=== PATIENT | female | born 1995 ===

== ENCOUNTER 2017-03-26 01:42 | Emergency (ER) | payer SELFPAY ==
[2017-03-26 02:43] VITALS: BMI 26.2
[2017-03-26 03:15] LABS: BASO % 0.2 % (0.0-2.0); EOS % 0.3 % (0.0-4.0); HEMATOCRIT 32.4 % (34.0-47.0); LYMPH # 2.1 K/uL (1.0-4.3); LYMPH % 18.4 % (20.0-40.0); MEAN CELL VOLUME 82.5 fl (81.0-99.0); MEAN CORPUSCULAR HEMOGLOBIN 27.4 pg (27.0-31.0); MEAN CORPUSCULAR HGB CONC 33.2 g/dL (33.0-37.0); MEAN PLATELET VOLUME 9.7 fl (7.2-11.7); MONO % 8.9 % (0.0-10.0); NEUT # 8.3 K/uL (1.8-7.0); NEUT % 72.2 % (50.0-75.0); NRBC % 0.1 % (0.0-0.0); RED CELL DISTRIBUTION WIDTH 13.6 % (11.5-14.5); WHITE BLOOD COUNT 11.5 K/uL (4.8-10.8)
[2017-03-26 03:31] LABS: BLOOD UREA NITROGEN 4 mg/dl (7-17); GLUCOSE,RANDOM 89 mg/dL (65-105)
[2017-03-26 03:32] LABS: CALCIUM 9.3 mg/dL (8.4-10.2); CARBON DIOXIDE 26 mmol/L (22-30); CHLORIDE 106 mmol/L (98-107); GFR AFRICAN-AMERICAN > 60; POTASSIUM 4.4 MMOL/L (3.6-5.0); SODIUM 139 mmol/l (132-148); TOTAL PROTEIN 7.4 G/DL (6.3-8.2)
[2017-03-26 03:33] LABS: ALB/GLOB RATIO 1.1 (1.0-2.1); ALKALINE PHOSPHATASE 131 U/L (38-126); ALT/SGPT 45 U/L (9-52); AST/SGOT 27 U/L (14-36); BILIRUBIN,TOTAL 0.3 mg/dl (0.2-1.3)
[2017-03-26 12:40] VITALS: BP 104/43; PULSE 80; RESP 16; TEMP 98.2
== END 2017-03-26 08:10 | disposition home or self-care (01) ==
LOC: H.EROB2 01:42
DX: O47.03 False labor before 37 completed weeks of gestation, third trimester (principal); Z3A.28 28 weeks gestation of pregnancy

== ENCOUNTER 2017-06-15 10:10 | Inpatient (IN) | payer MEDICAID, SELFPAY ==
[2017-06-15 11:18] VITALS: BMI 27.9
--- NOTE | 2017-06-15 13:06 | US ---
Ultrasound biophysical profile Indication: Decreased movement Technique: Grayscale, color flow, and M-mode sonographic images of the single live intrauterine were obtained. Comparison: None available. Findings: There is a single live intrauterine gestation. The fetus is in cephalic position. The placenta is anterior. There is a normal amount of amniotic fluid. The MARGY measures 4.0 cm. M-mode imaging demonstrates a heart rate to be 126.1 beats per min. movements 2/2 breathing 2/2 tone 2/2 Amniotic fluid 0/2 Total score impression: 6/8 Impression: Oligohydramnios. Biophysical profile of 6 out of 8. Single live intrauterine in cephalic position with a heart rate of 126.1 beats per min.
[2017-06-15 13:53] LABS: BASO % 0.5 % (0.0-2.0); EOS % 0.2 % (0.0-4.0); HEMATOCRIT 40.1 % (34.0-47.0); LYMPH # 1.4 K/uL (1.0-4.3); LYMPH % 26.4 % (20.0-40.0); MEAN CELL VOLUME 84.6 fl (81.0-99.0); MEAN CORPUSCULAR HGB CONC 33.2 g/dL (33.0-37.0); MEAN PLATELET VOLUME 10.9 fl (7.2-11.7); MONO # 0.5 K/uL (0.0-0.8); MONO % 9.3 % (0.0-10.0); NEUT # 3.5 K/uL (1.8-7.0); NEUT % 63.6 % (50.0-75.0); NRBC % 0.1 % (0.0-0.0); RED CELL DISTRIBUTION WIDTH 18.3 % (11.5-14.5); WHITE BLOOD COUNT 5.5 K/uL (4.8-10.8)
[2017-06-15] MEDS: Lactated Ringer's 1,000 ML IV SCH (22:49)
--- NOTE | 2017-06-16 06:14 | OBHP ---
Datetime: 06/16/2017 06:00 IP Adm Impression: Term, intrauterine Pelvic Type - PN: Adequate Extremities - PN: Normal Abdomen - PN: Normal Back - PN: Normal Lungs - PN: Normal Heart - PN: Normal Neurologic - PN: Normal HEENT - PN: Normal General - PN: Normal FHR - Baseline A Provider: 130's IP Hx Assessment: The History has been Reviewed and is Current EGA AdmitDate IP: 40.2 IP Indication for Induction: Oligohydramnios IP Chief Complaint: Decreased movement NICHD Variability Prov Fetus A: Moderate 6-25bpm NICHD Accel Fetus A IP Provider: 15X15 FHR Category Provider Fetus A: Category I Dilatation, Provider: 0 Genitourinary Exam: Normal DTRs - PN: Normal Datetime: 06/15/2017 11:25 IP Admit Plan: Observation/Evaluation Admit Comment, IP Provider: 21 yo IUP at 40w1d GA presents to [facility] for decreased FM. Pt missed her appointment w/ Dr. Oates yesterday and today she stated she had decreased FM. She feels FM now. No SROM. no VB. No CTX. PNC: [facility], missed appointment w/ Dr. Oates yesterday. chart rev'd PNL: O+, ab neg, RPR neg, HIV neg, GBS neg, rubella immune, HBsAg neg, PPD +( CXR neg on 03/25/17), gc/c neg, pap n/a Past obhx: G1 Past gynhx: Denies hx STI, Pap( N/A). PMH: anemia PSH: denies Medications: PNV Allgergies: NKDA PSoH: denies smoking ,ETOH, or recreational drugs use. Family hx: Denies family hx DMII, CAD or CA. Assessment: 21 yo IUP at 40w1d -decreased FM PLAN: sono for BPP PO intake case disucssed with Dr Brown - will also order sono later this week and schedule IOL a t 41w Breast - PN: Not Done Presentation-Admit: Vertex Membranes, Provider: Intact Pool Provider: Negative Vital Signs Provider: Reviewed NICHD Decel Fetus A IP Provider: None Datetime: 03/26/2017 02:19 Thyroid - PN: Normal
--- NOTE | 2017-06-16 06:16 | OBADHP ---
Datetime: 06/16/2017 06:00 Admit Comment, IP Provider: Late entry, this H_P was done on 06/15/17 at 19:00 21 yo IUP at 40w1d GA based on LMP 09/07/16, c/w first trimester US, EDC 06/14/17 presents to [facility] for decreased FM. Pt missed her appointment w/ Dr. Oates yesterday and today she stated she had decreased FM. She feels FM now. No SROM. no VB. No CTX. Pt had BPP done today which showed MARGY 4. Pt is GBS neg. All 3rd trimesters labs are reviewed and current. Denies headache, dizziness, blurry vis ion or chest pain. PNC: [facility], missed appointment w/ Dr. Oates yesterday. PNL: O+, ab neg, RPR neg, HIV neg, GBS neg, rubella immune, HBsAg neg, PPD +( CXR neg on 03/25/17), gc/c neg, pap n/a US: BPP 06/15/17: MARGY 4 Past obhx: G1 Past gynhx: Denies hx STI, Pap( N/A). PMH: anemia PSH: denies Medications: PNV Allgergies: NKDA PSoH: denies smoking ,ETOH, or recreational drugs use. Family hx: Denies family hx DMII, CAD or CA. Assessment: 21 yo IUP at 40w1d has decreased FM and oligohydramnios PLAN: BPP was done earlier today which shows MARGY 4 Admit to L_D Initiate IOL protocol Cytotec 25 mg po once Cytotec 50 mg po q4h Continuous heart tracing Case d/w on-call OB hospitalist Dr. Simba Lechuga, [facility]...sono done showed margy 4cm. With director of guidance in public schools present discussed condition, IO L, medications and pain management. She understood..will start Cytotec po q 4h Pelvic Type - PN: Adequate Extremities - PN: Normal Abdomen - PN: Normal Back - PN: Normal Lungs - PN: Normal Heart - PN: Normal Neurologic - PN: Normal HEENT - PN: Normal General - PN: Normal FHR - Baseline A Provider: 130's IP Hx Assessment: The History has been Reviewed and is Current IP Chief Complaint: Decreased movement NICHD Variability Prov Fetus A: Moderate 6-25bpm NICHD Accel Fetus A IP Provider: 15X15 FHR Category Provider Fetus A: Category I Dilatation, Provider: 0 Genitourinary Exam: Normal DTRs - PN: Normal EGA AdmitDate IP: 40.2 IP Adm Impression: Term, intrauterine Datetime: 06/15/2017 11:25 Breast - PN: Not Done Presentation-Admit: Vertex Membranes, Provider: Intact Pool Provider: Negative Vital Signs Provider: Reviewed NICHD Decel Fetus A IP Provider: None IP Admit Plan: Observation/Evaluation Datetime: 03/26/2017 02:19 Thyroid - PN: Normal
[2017-06-16] MEDS: Lactated Ringer's 1,000 ML IV SCH ×9 (06:45→20:30)
[2017-06-16] MEDS ORDERED: Nalbuphine 20 mg/ml Inj (1 ml) IVP PRN (07:33)
[2017-06-16] MEDS ORDERED: Oxytocin 30 UNITS in Sodium Chloride 0.9% 500 ML IV ONE (17:31)
[2017-06-16] MEDS ORDERED: Lactated Ringer's 1,000 ML IV SCH (19:30)
[2017-06-16] MEDS ORDERED: Fentanyl/Bupivacaine HCl 250 ML EPI ONE (19:52)
[2017-06-16] MEDS ORDERED: Bupivacaine HCl 0.25% PF (10 ml) Inj ONE (19:53)
[2017-06-17] MEDS ORDERED: Lidocaine 1% Inj (20ml) ONE (01:53)
[2017-06-17] MEDS ORDERED: Benzocaine/Menthol SPRAY TOP PRN ×2 (04:39→06:05)
[2017-06-17] MEDS ORDERED: Oxycodone/Acetaminophen 5/325 mg Tab PO PRN ×4 (04:39→06:05)
[2017-06-17] MEDS ORDERED: Oxytocin 30 UNITS in Sodium Chloride 0.9% 500 ML IV ONE (04:48)
--- NOTE | 2017-06-17 04:51 | OBDS ---
DELIVERY PERSONNEL Delivery Doctor: Abodn Hart MD Marine Engineer Cpvec: Germania Thompson RN Anesthesiologist: Leatha Mcbride MD Resident: Sultan Alexandrea MATERNAL INFORMATION Delivery Anesthesia: Local; Epidural Medications in Delivery: Pitocin Estimated Blood Loss (ml): 150 Placenta Cultured: No Maternal Complications: None Provider Comments: Pt progressed to complete and pushed to deliver a viable female infant through mo derately stained meconium at 04:17am. Apgars 8 and 9. Wt 7#3, 3270gms. Tight nuchal cord was clamp ed and cut at the perineum. Infant was brought to the warmer. Cord blood collected. Placenta deliv ered spontaneously w/ a 3vc at 04:21 am. Retained membranes teased out of cervix with a Ring forceps. No lacerations noted. Rectum intact. EBL 150mL LABOR SUMMARY EDC: 06/14/2017 00:00 No. Babies in Womb: 1 Attempted: No Labor Anesthesia: Epidural LABOR INFORMATION Reason for Induction: Oligohydramnios Onset of Labor: 06/16/2017 19:30 Complete Dilatation: 06/17/2017 01:45 Cervical Ripening Agents: Cytotec @ Oxytocin: Induction Group B Beta Strep: Negative Antibiotics # of Doses: n/a Antibiotics Time of Last Dose: n/a Steroids Given: None Reason Steroids Not Administered: Not Applicable MEMBRANES Membranes Rupture Method: Spontaneous Rupture of Membranes: 06/17/2017 00:45 Length of Rupture (hrs): 3.53 Amniotic Fluid Color: Clear Amniotic Fluid Amount: Scant Amniotic Fluid Odor: Normal STAGES OF LABOR Stage 1 hrs: 6 Stage 1 min: 15 Stage 2 hrs: 2 Stage 2 min: 32 Stage 3 hrs: 0 Stage 3 min: 4 Total Time in Labor hrs: 8 Total Time in Labor min: 51 VAGINAL DELIVERY Episiotomy: None Laceration Extension: N/A Laceration Type: None Laceration Repair: Yes Initial Vag Sponge Count: 15 Final Vag Sponge Count: 15 Initial Vag Sharps Count: 2 Final Vag Sharps Count: 2 Sponge Count Correct: Yes Sharps Count Correct: Yes Count Comment: count correct BABY A INFORMATION Infant Delivery Date/Time: 06/17/2017 04:17 Method of Delivery: Vaginal Born in Route : No : N/A Forceps: N/A Vacuum Extraction: N/A Shoulder Dystocia : No SHOULDER DYSTOCIA BABY A Delivery Date/Time: 06/17/2017 04:17 PRESENTATION/POSITION BABY A Presentation: Cephalic PLACENTA INFORMATION BABY A Placenta Delivery Time : 06/17/2017 04:21 Placenta Method of Delivery: Spontaneous Placenta Status: Delivered SCORES BABY A Heart Rate 1 min: >100 bpm Resp Effort 1 min: Slow, Irregular Reflex Irritability 1 min: Cough or Sneeze or Pulls Away Muscle Tone 1 min: Active Motion Color 1 min: Body [place], Extremities Blue Resuscitation Effort 1 min: Tactile Stimulation SCORE 1 MIN: 8 Heart Rate 5 min: >100 bpm Resp Effort 5 min: Good Cry Reflex Irritability 5 min: Cough or Sneeze or Pulls Away Muscle Tone 5 min: Active Motion Color 5 min: Body Minong, Extremities Blue Resuscitation Effort 5 min: N/A SCORE 5 MIN: 9 INFORMATION BABY A Gestational Age at Delivery: 40.3 Gestational Status: Term Outcome : Liveborn Infant Condition : Stable Sex: Female IDENTIFICATION/MEDS BABY A ID Band Number: [id number] ID Band Location: Left Leg; Left Arm WEIGHT/LENGTH BABY A Birthweight (gms): 3270 Weight (lb): 7 Weight (oz): 3 CORD INFORMATION BABY A No. Cord Vessels: 3 Nuchal Cord : Around Neck x1, Tight Nuchal Cord Other: n/a True Knot: n/a Infant Cord pH Baby Arterial: n/a Infant Cord pH Baby Venous: n/a Cord Blood Taken: Yes Banking/Donate Info: n/a Suction: Mouth; Nose; Pharynx ASSESSMENT BABY A Infant Complications: Meconium; Oligohydramnios Physical Findings at Delivery: Caput Succedaneum Infant Respirations: Grunting; Intercostal Retractions Medical Data Analyst/ALS Called : No Care By: Francis Sneed Transferred To: Remains with Mother
[2017-06-18 06:03] LABS: HEMATOCRIT 35.4 % (34.0-47.0); MEAN CELL VOLUME 85.3 fl (81.0-99.0); MEAN CORPUSCULAR HEMOGLOBIN 27.8 pg (27.0-31.0); MEAN CORPUSCULAR HGB CONC 32.6 g/dL (33.0-37.0); RED CELL DISTRIBUTION WIDTH 18.4 % (11.5-14.5); WHITE BLOOD COUNT 13.4 K/uL (4.8-10.8)
--- NOTE | 2017-06-18 08:52 | OBPPN ---
Datetime: 06/18/2017 06:23 PP Pain Prov: Within normal limits PP Nausea Prov: Denies PP Flatus Prov: Yes PP BM Prov: No PP Heart Prov: Normal PP Lungs Prov: Normal PP Abdomen/Uterus Prov: Normal PP Lochia Prov: Normal PP Vulva/Perineum Prov: Normal PP CVA Tenderness Prov: Normal PP Extremities Prov: Normal PP Impression Prov: Normal progression PP Plan Prov: Continue present management PP Progress Note Prov: PPD #1 21 y/o now seen and examined at bedside this morning. Reports pelvic pain which is controlle d with pain medications. Voiding freely w/ minimal blood noted. Pt reports passing gas per rectum bu t no BM yet. Ambulating well w/o dizziness. Lochia is similar to menses volume. Tolerating PO. Denies nausea, vomiting, fever, chills, chest pain or calf pain. Physical Exam: General: A_O, resting comfortably in bed, NAD HEENT: oral mucosa moist. Lungs: CTA B/L, no wheezing, rhonchi or rales CVS: RRR, S1, S2 ABD: ND, +BS, firm fundus @ umbilical level. Soft, appropriate TTP. EXT: no edema,no calf tenderness. Neuro/psych: AAOX3. Assessment: 21 y/o now doing well on PPD 1 Plan: OOB w/ caution Regular diet Percocet and Ibuprofen for pain management Encourage and ambulation. Anticipate discharge tomorrow Sultan Lechuga, PGY1 OB [facility]-call...pt seen on rounds this AM by me. Agree with note SADEO Vital Signs Provider PP: Reviewed
--- NOTE | 2017-06-19 12:37 | OBPPN ---
Datetime: 06/19/2017 07:05 PP Nausea Prov: Denies PP Flatus Prov: Yes PP BM Prov: Yes PP Heart Prov: Normal PP Lungs Prov: Normal PP Abdomen/Uterus Prov: Normal PP Lochia Prov: Normal PP Vulva/Perineum Prov: Normal PP Extremities Prov: Normal PP Impression Prov: Normal progression PP Plan Prov: Discharge PP Progress Note Prov: PPD #2 21 y/o now seen and examined at bedside this morning. Reports minimal pelvic pain. Voiding f reely w/ minimal blood noted. Had BM last night. Ambulating well w/o dizziness. Lochia is similar to menses volume. Denies nausea, vomiting, fever, chills, chest pain or calf pain. Physical Exam: General: A_O, resting comfortably in bed, NAD HEENT: oral mucosa moist. Lungs: CTA B/L, no wheezing, rhonchi or rales CVS: RRR, S1, S2 ABD: ND, +BS, firm fundus @ umbilical level. Soft, appropriate TTP. EXT: no edema,no calf tenderness. Neuro/psych: AAOX3. Assessment: 21 y/o now doing well on PPD 2 Plan: Discharge to home today PNV 1 PO qdaily Ibuprofen 600 mg 1 tab po q6h prn for moderate/severe pain Encourage . Ambulation with caution,nothing per vaginal, no heavy lifting. Go to ER if excessive bleeding or experiencing fever, increased perineal or abdominal pain, breast problems or leg pain and swelling. Follow up at your clinic in 4-6 weeks. Sultan Lechuga, PGY1 OB Hospitalist artemio. On rounds, I saw and examined this patient. Agree with PGY1 note CATHYNDChito Vital Signs Provider PP: Reviewed
--- NOTE | 2017-06-19 12:37 | OBDCSUM ---
Datetime: 06/19/2017 07:06 Discharged to, Provider: Home [facility], [facility] Disch Instr Activity: Normal activity Disch Instr Diet: Regular Discharge Instructions, Provider: Routine instructions given Discharge Diagnosis, Provider: Term Delivered Follow up in weeks, Provider: 4-6 weeks Disch Referrals: None Contraception discussed, Prov: Yes Disch Activity Restrictions: No lifting; No sexual activity; Nothing in vagina - [place], tampon s, douche Discharge Comment, Provider: Take Ibuprofen 600 mg 1 table every 6 hours as needed for pain. Take wi th food. Take vitamin daily. Please follow up with your doctor in 4-6 weeks. OB Hospitalist artemio. On rounds, I saw and examined this patient. Agree with PGY1 note MAHNDO Contraception after Delivery: Undecided
[2017-06-19 18:27] VITALS: BP 128/67; PULSE 80; RESP 20; TEMP 98.2; O2SAT 100
== END 2017-06-19 12:40 | disposition home or self-care (01) | DRG 373 ==
LOC: H.EROB2 10:10 → H.EROB 10:37 → H.EROB2 12:55 → H.EROB 12:56 → H.L&D 12:56 → H.OB/GYN 06-17 05:50
PROVIDERS: ADMIT Obstetrics & Gynecology; ATTEND Obstetrics & Gynecology
PROC: 4A1HXCZ Monitoring of Products of Conception, Cardiac Rate, External Approach (ICD-10-PCS; 2017-06-15)
PROC: 10E0XZZ Delivery of Products of Conception, External Approach (ICD-10-PCS; principal; 2017-06-17)
DX: O41.03X0 Oligohydramnios, third trimester, not applicable or unspecified (principal); O36.8130 Decreased fetal movements, third trimester, not applicable or unspecified; Z37.0 Single live birth; O69.1XX0 Labor and delivery complicated by cord around neck, with compression, not applicable or unspecified; O77.0 Labor and delivery complicated by meconium in amniotic fluid; Z3A.40 40 weeks gestation of pregnancy

== ENCOUNTER 2018-08-09 15:43 | Emergency (ER) | payer SELFPAY ==
[2018-08-09 15:43] VITALS: BMI 27.9
[2018-08-09 16:00] VITALS: RESP 18; O2SAT 98
[2018-08-09] MEDS ORDERED: Sodium Chloride 0.9% 1,000 ML IV STA ×2 (16:17→18:35)
--- NOTE | 2018-08-09 16:22 | ED PDOC ---
HPI: General Adult Time Seen by Provider: 08/09/18 16:15 Chief Complaint (Nursing): Fever Chief Complaint (Provider): ruq/fever History Per: Patient (22 y/o female here with fevers/chills associated with ruq abdominal pain x 2 days. Denies and vomiting/diarrhea/dysuria/cough) Past Medical History Reviewed: Historical Data, Nursing Documentation, Vital Signs Vital Signs: Last Vital Signs Temp 102.6 F H 08/09/18 15:56 Pulse 118 H 08/09/18 15:56 Resp 18 08/09/18 15:56 BP 130/74 08/09/18 15:56 Pulse Ox 98 08/09/18 15:56 - Medical History PMH: Denies: Depression, Diabetes, HTN, Chronic Kidney Disease - Family History Family History: States: No Known Family Hx - Home Medications Home Medications: Ambulatory Orders Medication Instructions Recorded Vit No.126/Iron/Folic 1 tab PO DAILY MDD 1 tab 06/15/17 [Classic Tablet] Ibuprofen [Motrin Tab] 600 mg PO Q6 PRN #30 tab 06/19/17 Cefdinir [Omnicef] 300 mg PO BID #20 cap 08/09/18 Ibuprofen [Motrin Tab] 800 mg PO Q8 PRN #21 tab 08/09/18 Ondansetron ODT [Zofran ODT] 4 mg PO Q8 PRN #10 odt 08/09/18 oxyCODONE/Acetaminophen [Percocet 1 ea PO Q6 PRN #5 tab 08/09/18 5/325 mg Tab] - Allergies Allergies/Adverse Reactions: Allergies Allergy/AdvReac Type Severity Reaction Status Date / Time No Known Allergies Allergy Verified 08/09/18 15:56 Review of Systems ROS Statement: Except As Marked, All Systems Reviewed And Found Negative Constitutional: Positive for: Fever Gastrointestinal: Positive for: Abdominal Pain Physical Exam - Reviewed Nursing Documentation Reviewed: Yes Vital Signs Reviewed: Yes - Physical Exam Appears: Positive for: Well, Non-toxic, No Acute Distress Head Exam: Positive for: ATRAUMATIC, NORMAL INSPECTION, NORMOCEPHALIC Skin: Positive for: Normal Color, Warm, DRY Eye Exam: Positive for: EOMI, Normal appearance, PERRL ENT: Positive for: Normal ENT Inspection Neck: Positive for: Normal, Painless ROM Cardiovascular/Chest: Positive for: Regular Rate, Rhythm Respiratory: Positive for: CNT, Normal Breath Sounds Gastrointestinal/Abdominal: Positive for: Normal Exam, Soft, Tenderness (ruq tenderness) Back: Positive for: Normal Inspection Extremity: Positive for: Normal ROM Neurologic/Psych: Positive for: Alert, Oriented - Laboratory Results Result Diagrams: 08/09/18 17:33 02 17:33 Urine POC: Negative Urine dip results: Positive for: Leukocyte Esterase, Blood. Negative for: Nitrate, Ketones, Glucose, Bilirubin - ECG O2 Sat by Pulse Oximetry: 98 - Progress ED Course And Treament: acetaminophen 975mg x 1 dose motrin 800mg x 1 dose rocephin 1 gm iv x 1 dose pepcid 20 mg iv x 1 dose NS 1 liter wide open US ABDOMEN: IMPRESSION: Fatty liver. No cholelithiasis or biliary dilatation. REPEAT PULSE RATE 87 REPEAT TEMP 100 D/W FAMILY MED RESIDENT to arrange outpatient f/u Disposition - Clinical Impression Clinical Impression: Pyelonephritis - Patient ED Disposition Is Patient to be Admitted: No - Disposition Referrals: [facility] [Outside] Disposition: Routine/Home Disposition Time: 19:07 Condition: FAIR Prescriptions: Cefdinir [Omnicef] 300 mg PO BID #20 cap Ibuprofen [Motrin Tab] 800 mg PO Q8 PRN #21 tab PRN Reason: Fever >100.4 F Ondansetron ODT [Zofran ODT] 4 mg PO Q8 PRN #10 odt PRN Reason: Nausea/Vomiting oxyCODONE/Acetaminophen [Percocet 5/325 mg Tab] 1 ea PO Q6 PRN #5 tab PRN Reason: Pain, Severe (8-10) Instructions: Kidney Infection Forms: [facility] ED School/Work Excuse Print Language: TELUGU
[2018-08-09] MEDS ORDERED: cefTRIAXone (Rocephin) 1 gm Inj IVPB ONE (16:25)
[2018-08-09] MEDS ORDERED: cefTRIAXone (Rocephin) 1 gm Inj ONE (16:52)
[2018-08-09 17:26] LABS: SQUAMOUS EPITHIAL 9 /hpf (0-5); URINE BACTERIA OCC (<OCC); URINE BILIRUBIN NEGATIVE (NEGATIVE); URINE BLOOD SMALL (NEGATIVE); URINE CLARITY CLOUDY (Clear); URINE COLOR YELLOW (YELLOW); URINE GLUCOSE (UA) NEG (NEGATIVE); URINE LEUKOCYTE ESTERASE MOD Leu/uL (Negative); URINE PROTEIN NEGATIVE (NEGATIVE); URINE UROBILINOGEN 0.2-1.0 mg/dL (0.2-1.0)
[2018-08-09 17:27] LABS: VENOUS BLOOD GAS BASE EXCESS -0.5 mmol/L (0.0-2.0); VENOUS BLOOD GAS PCO2 39 mmHg (40-60); VENOUS BLOOD GAS PO2 20 mm/Hg (30-55)
[2018-08-09 17:39] LABS: BASO % 0.3 % (0.0-2.0); EOS % 0.1 % (0.0-4.0); HEMOGLOBIN 14.3 g/dL (12.0-16.0); LYMPH # 0.8 K/uL (1.0-4.3); LYMPH % 9.1 % (20.0-40.0); MEAN CELL VOLUME 76.9 fl (81.0-99.0); MEAN CORPUSCULAR HEMOGLOBIN 25.1 pg (27.0-31.0); MEAN CORPUSCULAR HGB CONC 32.7 g/dL (33.0-37.0); MEAN PLATELET VOLUME 9.3 fl (7.2-11.7); MONO # 0.5 K/uL (0.0-0.8); MONO % 6.1 % (0.0-10.0); NEUT # 7.7 K/uL (1.8-7.0); NEUT % 84.4 % (50.0-75.0); NRBC % 0.1 % (0.0-0.0); PLATELET COUNT 237 K/uL (130-400); RBC 5.67 Mil/uL (3.80-5.20); RED CELL DISTRIBUTION WIDTH 15.8 % (11.5-14.5); WHITE BLOOD COUNT 9.1 K/uL (4.8-10.8)
[2018-08-09 17:46] LABS: ALB/GLOB RATIO 1.1 (1.0-2.1); ALBUMIN 4.9 g/dL (3.5-5.0); ALT/SGPT 29 U/L (9-52); AST/SGOT 34 U/L (14-36); BLOOD UREA NITROGEN 10 mg/dl (7-17); CALCIUM 9.6 mg/dL (8.4-10.2); GFR NON-AFRICAN AMERICAN > 60; LIPASE 65 U/L (23-300)
--- NOTE | 2018-08-09 18:11 | US ---
Date of service: 08/09/2018 HISTORY: Right upper quadrant abdominal pain COMPARISON: None. TECHNIQUE: Grayscale imaging was performed. FINDINGS: LIVER: Measures 13.3 cm in length. There is diffuse increased echogenicity of the liver parenchyma. No mass. No intrahepatic bile duct dilatation. GALLBLADDER: There are no gallstones, wall thickening or pericholecystic fluid. The sonographic Stanley's sign is negative. COMMON BILE DUCT: Measures 2.0 mm. No stones. No dilatation. PANCREAS: Unremarkable as visualized. No mass. No ductal dilatation. RIGHT KIDNEY: Measures 10.6 cm in length. Normal echogenicity. No calculus, mass, or hydronephrosis. AORTA: No aneurysmal dilatation. IVC: Unremarkable. OTHER FINDINGS: None . IMPRESSION: Fatty liver. No cholelithiasis or biliary dilatation.
[2018-08-09 19:04] VITALS: BP 103/55; PULSE 83; TEMP 99.1
[2018-08-09 19:50] LABS: BANDS 2 % (0-2); LYMPHOCYTE 12 % (20-50); MICROCYTOSIS SLIGHT; MONOCYTE 9 % (0-10); NEUTROPHIL 77 % (42-75); PLATELET ESTIMATE NORMAL (NORMAL); TOTAL CELLS COUNTED 100
[2018-08-09 19:51] LABS: HYPOCHROMIC SLIGHT
== END 2018-08-09 19:48 | disposition home or self-care (01) ==
LOC: H.ER 15:43
DX: N12 Tubulo-interstitial nephritis, not specified as acute or chronic (principal)
CPT/HCPCS: 76705; 80053; 81003; 81025; 82803; 83690; 85025; 87040; 87086; 87181; 87804; 96374; 99285; J0696; J7030